=== PATIENT | male | born 1995 | race Caucasian/White ===

== ENCOUNTER 2021-04-27 23:42 | Emergency (ER) | payer OTHER ==
[~2021-04-27] VITALS: Wt 78.0 kg
[2021-04-28] MEDS ORDERED: MEDICAL MARIJUANA (00:20)
[2021-04-28] MEDS ORDERED: PREDNISONE20 M1 PO (02:05)
[2021-04-28] MEDS ORDERED: LACRILUBE S.O.3.5 GM OPH (02:05)
== END 2021-04-28 02:23 | disposition left against medical advice (07) ==
LOC: ED 23:42
DX: G51.0 Bell's palsy (principal)